=== PATIENT | female | born 1955 | race Caucasian/White ===

== ENCOUNTER 2017-05-20 01:41 | Emergency (ER) | payer OTHER ==
[~2017-05-20] VITALS: Ht 160 cm; Wt 102.1 kg
[2017-05-20 01:45] VITALS: BP 149/72
--- NOTE | 2017-05-20 01:55 | NUR ---
61/F CAME IN W C/O " I HAD LEFT KNEE REPLACEMENT ON 04/30/17 AND YESTERDAY I FELT SOMETHING POP, LIKE SOMETHING FELL IN MY KNEE" . DENIES ANY PAIN AT THIS TIME, +PMSC TO LLE WITH FULL ROM. SURGICAL SITE NOTED WITH STERSTRIPS, NO S/S OF INFECTION NOTED. PMH: DM, HTN
--- NOTE | 2017-05-20 02:25 | NUR ---
XRAY AT BEDSIDE
[2017-05-20 04:04] VITALS: BP 128/76
== END 2017-05-20 04:00 | disposition home or self-care (01) ==
LOC: MED 01:41
DX: G89.18 Other acute postprocedural pain (principal); I10 Essential (primary) hypertension; Z96.652 Presence of left artificial knee joint
CPT/HCPCS: 73562; 73630; 99284; Q0092

== ENCOUNTER 2017-06-21 21:07 | Inpatient (IN) | payer OTHER ==
[~2017-06-21] VITALS: Ht 160 cm; Wt 99.8 kg
[2017-06-21] MEDS: NACL 0.9% 1,000 ML IV SCH (00:29)
[2017-06-21 21:15] VITALS: BP 200/93
--- NOTE | 2017-06-21 21:19 | NUR ---
PT W/C ASSISTED TO ER BED 3
[2017-06-21] MEDS ORDERED: NACL 0.9% 1,000 ML IV ONE (21:30)
[2017-06-21] MEDS ORDERED: ONDANSETRON 4 MG/2 ML VIAL IVP ONE (21:30)
--- NOTE | 2017-06-21 21:30 | NUR ---
Pt vomiting. Skin warm but moist. Family x 1 at bedside.
--- NOTE | 2017-06-21 21:37 | NUR ---
X-Ray at bedside.
--- NOTE | 2017-06-21 22:09 | NUR ---
Ultrasound at bedside.
[2017-06-21] MEDS ORDERED: PROCHLORPERAZINE 10 MG/2 ML VIAL IVP ONE (22:10)
[2017-06-21 22:17] LABS: BASOPHILS % (AUTO) 0.4 % (0.0-2.0); EOSINOPHILS # (AUTO) 0.3 K/uL (0-0.4); EOSINOPHILS % (AUTO) 3.9 % (0.0-4.0); HEMATOCRIT 36.2 % (36-48); HEMOGLOBIN 11.8 g/dL (12.0-16.0); LYMPHOCYTES # (AUTO) 2.3 K/uL (2.5-16.5); LYMPHOCYTES % (AUTO) 31.5 % (20.5-51.1); MEAN CORPUSCULAR HEMOGLOBIN 27 pg (27-31); MEAN CORPUSCULAR HGB CONC 33 g/dL (33-37); MEAN CORPUSCULAR VOLUME 81.9 fL (80-94); MONOCYTES # (AUTO) 0.7 K/uL (0.8-1.0); NEUTROPHILS % (AUTO) 54.2 % (42.2-75.2); PLATELET COUNT (AUTO) 330 K/uL (140-450); RED BLOOD CELL COUNT(AUTO) 4.43 MIL/uL (4.20-5.40); RED CELL DISTRIBUTION WIDTH 14.1 % (11.6-13.7); WHITE BLOOD COUNT (AUTO) 7.3 K/uL (4.8-10.8)
[2017-06-21 22:21] LABS: ANION GAP 16.6 (8-16); CARBON DIOXIDE 25.9 mmol/L (21-32); CREATININE 1.1 mg/dL (0.6-1.3); POTASSIUM 3.5 mmol/L (3.5-5.1)
[2017-06-21 22:23] LABS: PROTHROMBIN TIME 12.1 secs (10.8-13.4)
--- NOTE | 2017-06-21 22:25 | NUR ---
States nausea subsiding.
[2017-06-21 22:27] LABS: ALBUMIN 3.6 g/dL (3.4-5.0); TOTAL BILIRUBIN 0.3 mg/dL (0.0-1.0)
[2017-06-21] MEDS ORDERED: MORPHINE SULFATE 4 MG/ML SYR IVP ONE (22:40)
--- NOTE | 2017-06-21 22:40 | NUR ---
Pt violently vomiting again. Dr Srinivasan aware.
[2017-06-21] MEDS ORDERED: KETOROLAC 30 MG/ML VIAL IVP ONE (22:45)
--- NOTE | 2017-06-21 22:48 | NUR ---
Kiki james in [facility] - 06/21/[address] at [address] Srinivasan evaluating patient.
[2017-06-21] MEDS ORDERED: ONDANSETRON 4 MG/2 ML VIAL IVP PRN (23:25)
[2017-06-21] MEDS ORDERED: HYDROcodone/APAP 7.5/325 MG 1 TAB PO PRN (23:25)
[2017-06-21] MEDS ORDERED: ACETAMINOPHEN 325 MG TAB PO PRN (23:25)
--- NOTE | 2017-06-21 23:26 | NUR ---
Pt states nausea resolved.
[2017-06-21 23:50] VITALS: BP 110/44
--- NOTE | 2017-06-21 23:50 | NUR ---
Patient will be admitted to care of Dr Mendieta. Admited to Tele. Will go to room 120A. Belongings list completed. Report to LESTER Vang.
--- NOTE | 2017-06-21 23:50 | NUR ---
RECEIVED PT FROM ER NURSE KEITH PT AWAKE, ALERT AND ORIENTED X4, NO RESPIRATORY DISTRESS OR C/O PAIN AT THIS TIME.ORIENRTED TO SURRPOUNDINGS, CALL LIGHT WITHIN REACH. INSTRUCTED TO CALL IF NEEDED ASSISTANCE. IV PATENT TO L AC #20. NO C/O P[AIN OR VOMITING .
[2017-06-21 23:57] LABS: APPEARANCE,URINE CLEAR (CLEAR); BILIRUBIN,URINE NEGATIVE (NEGATIVE); BLOOD, URINE 1+ (NEGATIVE); COLOR,URINE YELLOW (YELLOW); LEUKOCYTE ESTERASE ,URINE TRACE (NEGATIVE); NITRITE, URINE NEGATIVE (NEGATIVE); PH,URINE 6.5 (5.0-9.0); UGLUCOSE TRACE (NEGATIVE)
[2017-06-22 00:03] LABS: CHOL/HDL RATIO 4.2 (1-4.5); FREE T4 (FREE THYROXINE) 1.2 ng/dL (0.76-1.46); MAGNESIUM 2.2 mg/dL (1.8-2.4); THYROID STIMULATING HORMONE 3.07 uIU/mL (0.34-3.74)
[2017-06-22 00:03] LABS: BARBITURATE, URINE NEG. ng/ml (NEG <=200); BENZODIAZEPINE, URINE NEG. ng/mL (NEG <=200); CANNABINOID, URINE NEG. ng/mL (NEG <=50); COCAINE, URINE NEG. ng/mL (NEG <=300); OPIATE, URINE NEG. ng/mL (NEG <=2000); PHENCYCLIDINE SCREEN,URINE NEG. ng/mL (NEG <=25)
[2017-06-22 00:27] LABS: RBC,URINE 3-10 (FEW) /HPF (0-5)
[2017-06-22] MEDS: methylPREDNISolone SS 40 MG/ML VIAL IVP SCH ×3 (00:47→20:37)
--- NOTE | 2017-06-22 00:47 | NUR ---
SOLUMEDROL 40MG IV GIVEN ORDERED,EDUCATION GIVEN TO DAUGHTER SINCE PT IS SOUND ASLEEP.
[2017-06-22] MEDS ORDERED: DEXTROSE 50% 50 ML SYR IVP PRN (01:00)
[2017-06-22] MEDS ORDERED: LEVOFLOXACIN 250 MG/D5 PREMIX 50 ML IV SCH ×2 (02:00→22:00)
--- NOTE | 2017-06-22 02:30 | NUR ---
LEVAQUIN IV GIVEN PT EDUCATED FOR REACTION.
[2017-06-22 03:57] VITALS: BP 108/40
--- NOTE | 2017-06-22 04:00 | NUR ---
ASSISTED TO BSC VOIDED WITHOUT DIFFICULTY.
[2017-06-22] MEDS: INSULIN LISPRO SLIDING SCALE 100 UNITS/ML VIAL SUBQ PRN ×3 (06:16→16:50)
[2017-06-22] MEDS: BLOOD GLUCOSE MONITORING 1 DEV DEV FS SCH ×4 (06:16→21:10)
--- NOTE | 2017-06-22 06:30 | NUR ---
PT SLEEPING WHEN CHECK, NO C/O NAUSEA OR VOMITING, NO SIGN OF RESPIRATORY DISTRESS.
--- NOTE | 2017-06-22 07:30 | NUR ---
REPORT GIVEN TO HERVE FOR CONTINUITY OF CARE.
--- NOTE | 2017-06-22 07:30 | NUR ---
RECEIVED REPORT ABOUT THE PT FROM THE BARLEY STEEPER CHARGE NURSEBriana RIVERA. PT IS ASLEEP ON THE BED. NO SIGNS OF DISTRESS NOTED. CALL LIGHT WITHIN REACH. TWO SIDE RAILS ARE UP, AND HAS AN IV LINE ON THE LEFT HAND, INTACT. WILL CONTINUE TO MONITOR.
[2017-06-22 07:51] LABS: BASOPHILS % (AUTO) 0.4 % (0.0-2.0); HEMATOCRIT 37.6 % (36-48); HEMOGLOBIN 12.4 g/dL (12.0-16.0); LYMPHOCYTES # (AUTO) 0.5 K/uL (2.5-16.5); LYMPHOCYTES % (AUTO) 8.6 % (20.5-51.1); MEAN CORPUSCULAR HEMOGLOBIN 27 pg (27-31); MEAN CORPUSCULAR HGB CONC 33 g/dL (33-37); MONOCYTES # (AUTO) 0.1 K/uL (0.8-1.0); NEUTROPHILS # (AUTO) 5.5 K/uL (1.8-7.7); PLATELET COUNT (AUTO) 311 K/uL (140-450); RED BLOOD CELL COUNT(AUTO) 4.53 MIL/uL (4.20-5.40); RED CELL DISTRIBUTION WIDTH 13.9 % (11.6-13.7); WHITE BLOOD COUNT (AUTO) 6.1 K/uL (4.8-10.8)
[2017-06-22 07:55] LABS: MAGNESIUM 2.3 mg/dL (1.8-2.4); PHOSPHORUS 3.6 mg/dL (2.5-4.9)
[2017-06-22 07:57] LABS: ANION GAP 14.9 (8-16); CARBON DIOXIDE 26.5 mmol/L (21-32); CREATININE 0.9 mg/dL (0.6-1.3); POTASSIUM 4.4 mmol/L (3.5-5.1)
[2017-06-22 08:00] VITALS: BP 148/80
--- NOTE | 2017-06-22 08:27 | NUR ---
PATIENT HAS BEEN SCREENED AND CATEGORIZED HIGH NUTRITION RISK. PATIENT WILL BE SEEN WITHIN 1-2 DAYS OF ADMISSION. 06/22/17-06/23/[address]
[2017-06-22] MEDS: ATORVASTATIN 20 MG TAB PO SCH (09:21)
[2017-06-22] MEDS: DOCUSATE SODIUM 100 MG GELCAP PO SCH ×2 (09:21→20:37)
[2017-06-22] MEDS: ECOTRIN 81 MG TABEC PO SCH (09:21)
[2017-06-22] MEDS: LACTOBACILLUS RHAMNOSUS GG 1 EACH CAP PO SCH (09:21)
[2017-06-22] MEDS: amLODIPine 5 MG TAB PO SCH (09:21)
[2017-06-22] MEDS: PANTOPRAZOLE 40 MG TABEC PO SCH (09:22)
--- NOTE | 2017-06-22 11:30 | NUR ---
PT IS SEATED ON THE BED WITH DAUGHTER AT THE BEDSIDE. VITAL SIGNS TAKEN AND BLOOD GLUCOSE CHECK DONE RESULT REVEALED 154. WILL MEDICATE. CALL LIGHT WITHIN REACH. WILL CONTINUE TO MONITOR.
[2017-06-22 12:00] VITALS: BP 155/81
--- NOTE | 2017-06-22 12:30 | NUR ---
PT IS SEATED ON THE BED WITH DAUGHTER ON THE BEDSIDE, HUMALOG 2 UNITS GIVEN ON LEFT UPPER ARM. NO SIGNS OF DISTRESS NOTED. CALL LIGHT WITHHIN REACH. WILL MONITOR.
--- NOTE | 2017-06-22 14:03 | NUR ---
RD INITIAL ASSESSMENT COMPLETED PLEASE REFER TO NUTRITION ASSESSMENT UNDER CARE ACTIVITY FOR ESTIMATED NUTRITIONAL NEEDS. RD RECOMMENDATIONS: 1.CONTINUE CCHO 60 GM DIET TOLERATED. 2. RECOMMEND ENCOURAGING INCREASED PO INTAKE FOR ADEQUATE NUTRITION. -NOTE PT CONSUMED ~50% OF BREAKFAST THIS MORNING. 3. RD WILL F/U 3-5 DAYS; MODERATE RISK. AIDA CANALES, RD
[2017-06-22 16:00] VITALS: BP 147/64
--- NOTE | 2017-06-22 16:45 | NUR ---
PT IS AWAKE LYING ON THE BED. VITAL SIGNS TAKEN AND BLOOD GLUCOSE CHECK DONE, RESULT IS 158, GAVE 2 UNITS OF HUMALOG. NO SIGNS OF DISTRESS NOTED. CALL LIGHT WITHIN REACH. WILL CONTINUE TO MONITOR.
--- NOTE | 2017-06-22 18:30 | NUR ---
PT IS LYING ON THE BED ASLEEP, NO SIGNS OF DISTRESS NOTED AT THIS TIME. CALL LIGHT WITHIN REACH. WILL CONTINUE TO MONITOR.
--- NOTE | 2017-06-22 19:25 | NUR ---
ENDORSED PT TO GROUP ART SUPERVISOR NURSES, MANAS, FOR CONTINUITY OF CARE. PT IS AWAKE LYING ON THE BED. PT IS STABLE AT THIS TIME. CALL LIGHT WITHIN REACH. WILL CONTINUE TO MONITOR.
--- NOTE | 2017-06-22 19:30 | NUR ---
RECEIVED REPORT FROM THE DAYSHIFT NURSE AT BEDSIDE. FOR CONTINUITY OF CARE. PT IS AWAKE AO X4. NO S/S OF DISTRESS. PT IS ON RA. NO SOB. NO COMPLAINTS OF PAIN AT THIS TIME. IV LINE NOTED LAC 20G. PATENT AND INTACT. BED LOWERED WITH CALL LIGHT WITHIN REACH WILL CONTINUE TO MONITOR.
[2017-06-22 20:00] VITALS: BP 174/77
[2017-06-22] MEDS ORDERED: KETOROLAC 30 MG/ML VIAL IM PRN (20:40)
[2017-06-22] MEDS: NACL 0.9% 1,000 ML IV SCH (21:00)
--- NOTE | 2017-06-22 21:30 | NUR ---
PT IN STABLE CONDITION. PT COMPLAINING OF PAIN IN IV SITE. ASSESSED HER IV AND RE-TAPED IT. PT REQUESTED ICE BAG AND CRACKERS. WILL CONTINUE TO MONITOR.
--- NOTE | 2017-06-22 23:21 | NUR ---
DC: IV LINE D/T UNABLE TO FLUSH. NEW IV LEFT FOREARM 22G. PATENT INTACT AND FLUSHING.
[2017-06-23] VITALS: BP 136/73
--- NOTE | 2017-06-23 00:50 | NUR ---
ASSESSED TO SEE HOW PATIENT WAS DOING. PT IS SLEEPING. NO SOB. NO S/S OF DISTRESS. WILL CONTINUE TO MONITOR.
--- NOTE | 2017-06-23 03:30 | NUR ---
PT IS ASLEEP ON THE BED. NO SIGNS OF DISTRESS NOTED. CALL LIGHT WITHIN REACH. WILL MONITOR.
[2017-06-23 04:00] VITALS: BP 132/65
--- NOTE | 2017-06-23 06:00 | NUR ---
PT WAS SLEEPING ASSESSED. NO S/S OF DISTRESS WILL CONTINUE TO MONITOR.
[2017-06-23] MEDS: BLOOD GLUCOSE MONITORING 1 DEV DEV FS SCH (06:30)
[2017-06-23] MEDS: INSULIN LISPRO SLIDING SCALE 100 UNITS/ML VIAL SUBQ PRN (06:31)
[2017-06-23 06:48] LABS: BASOPHILS % (AUTO) 0.1 % (0.0-2.0); HEMATOCRIT 34.4 % (36-48); HEMOGLOBIN 11.4 g/dL (12.0-16.0); LYMPHOCYTES # (AUTO) 0.8 K/uL (2.5-16.5); LYMPHOCYTES % (AUTO) 7.7 % (20.5-51.1); MEAN CORPUSCULAR HEMOGLOBIN 27 pg (27-31); MEAN CORPUSCULAR HGB CONC 33 g/dL (33-37); MEAN CORPUSCULAR VOLUME 81.8 fL (80-94); MONOCYTES # (AUTO) 0.4 K/uL (0.8-1.0); MONOCYTES % (AUTO) 3.5 % (1.7-9.3); NEUTROPHILS # (AUTO) 9.2 K/uL (1.8-7.7); NEUTROPHILS % (AUTO) 88.7 % (42.2-75.2); PLATELET COUNT (AUTO) 316 K/uL (140-450); RED BLOOD CELL COUNT(AUTO) 4.21 MIL/uL (4.20-5.40); WHITE BLOOD COUNT (AUTO) 10.4 K/uL (4.8-10.8)
[2017-06-23 07:10] LABS: ANION GAP 13.1 (8-16); CARBON DIOXIDE 27.2 mmol/L (21-32); POTASSIUM 4.3 mmol/L (3.5-5.1)
--- NOTE | 2017-06-23 07:19 | NUR ---
GAVE REPORT TO DAY SHIFT NURSE AT BEDSIDE. FOR CONTINUITY OF CARE.
--- NOTE | 2017-06-23 07:20 | NUR ---
RECEIVED REPORT FROM RN CARDIAC CATH. PT ALERT AND ORIENTED X3, V/S STABLE. NO DISTRESS,NO C/C OF PAIN.LYING IN BED.WILL CONTINUE MONITORING.
[2017-06-23 08:00] VITALS: BP 133/62
[2017-06-23] MEDS: ECOTRIN 81 MG TABEC PO SCH (09:00)
--- NOTE | 2017-06-23 10:00 | NUR ---
PATIENT ASK TO DISCHARGE TODAY.DENIED PAIN AND DISCOMFORT.NO NAUSEA AND VOMITING.CALL LIGHT WITHIN REACH.AWARE PATIENT WANTS TO DISCHARGE AND WAITING FOR ORDER.WILL CONTINUE TO MONITORING.
[2017-06-23] MEDS: methylPREDNISolone SS 40 MG/ML VIAL IVP SCH (10:02)
[2017-06-23] MEDS: DOCUSATE SODIUM 100 MG GELCAP PO SCH (10:03)
[2017-06-23] MEDS: LACTOBACILLUS RHAMNOSUS GG 1 EACH CAP PO SCH (10:04)
[2017-06-23] MEDS: PANTOPRAZOLE 40 MG TABEC PO SCH (10:13)
[2017-06-23] MEDS: ATORVASTATIN 20 MG TAB PO SCH (10:18)
[2017-06-23] MEDS: amLODIPine 5 MG TAB PO SCH (10:19)
[2017-06-23] MEDS ORDERED: OMEP20TC10 PO (11:29)
[2017-06-23] MEDS ORDERED: AMLO5TAB PO (11:29)
[2017-06-23] MEDS ORDERED: LEVO750T2 PO (11:36)
[2017-06-23] MEDS ORDERED: ATOR20TA40 PO (11:36)
[2017-06-23] MEDS ORDERED: LACT10CA PO (11:36)
[2017-06-23] MEDS ORDERED: METH4TAB3 PO (11:36)
--- NOTE | 2017-06-23 13:00 | NUR ---
RECEIVED ORDER TO DISCHARGE TO HOME.INSTRUCTED DC MEDS,FALL PRECAUTION,STANDARD PRECAUTION.PATIENT VERBALIZED UNDERSTANDING.NO DISTRESS.ALERT AND ORIENTEDX3,STABLE V/S AND BS. ASSISTED TO LOBBY BY WHEEL CHAIR TO SOLE LAYER HAND BY DAUGHTER.
--- NOTE | 2017-06-23 14:54 | NUR ---
CM NOTE INITIAL REVIEW FAXED TO [employer] / FAX# [phone]
--- NOTE | 2017-06-25 13:14 | NUR ---
LATE ENTRY FOR 06/24/17 RECEIVED VM FROM [facility] STAT[facility] PT REFERENCE NUMBER IS [id number]. CALL BACK NUMBER IS [phone] AND FAX [phone]
== END 2017-06-23 14:00 | disposition home or self-care (01) | DRG 197 ==
LOC: MED 21:07 → MTU 23:23
PROVIDERS: ADMIT Student in an Organized Health Care Education/Training Program; ATTEND Student in an Organized Health Care Education/Training Program
DX: D86.9 Sarcoidosis, unspecified (principal); D68.59 Other primary thrombophilia; E11.51 Type 2 diabetes mellitus with diabetic peripheral angiopathy without gangrene; E11.65 Type 2 diabetes mellitus with hyperglycemia; E66.01 Morbid (severe) obesity due to excess calories; N39.0 Urinary tract infection, site not specified; I16.0 Hypertensive urgency; D86.85 Sarcoid myocarditis; E78.5 Hyperlipidemia, unspecified; Z68.39 Body mass index [BMI] 39.0-39.9, adult; I10 Essential (primary) hypertension; Z96.652 Presence of left artificial knee joint; K21.9 Gastro-esophageal reflux disease without esophagitis; Z88.5 Allergy status to narcotic agent; D64.9 Anemia, unspecified; Z60.2 Problems related to living alone; Z80.3 Family history of malignant neoplasm of breast
CPT/HCPCS: 36415; 71045; 80048; 80053; 80305; 81001; 82150; 82164; 82330; 82948; 83036; 83605; 83690; 83735; 83880; 84100; 84439; 84443; 84484; 85025; 85610; 85651; 85730; 86140; 87040; 87081; 87086; 93005; 93925; 93971; 96361; 96374; 96375; 99285; J0780; J1644; J1815; J1885; J1956; J2405; J2920; J7030; Q0092

== ENCOUNTER 2021-05-16 14:57 | Emergency (ER) | payer OTHER ==
[~2021-05-16] VITALS: Ht 160 cm; Wt 108.9 kg
[~2021-05-16 14:57] MED LIST: AMLO5TAB PO; ATOR20TA40 PO; LACT10CA PO; LEVO750T2 PO; METH4TAB3 PO; OMEP20TC10 PO
[2021-05-16 15:10] VITALS: BP 137/70
--- NOTE | 2021-05-16 15:10 | NUR ---
65 y/o Female BIB self for increased left left swelling x 2 weeks. Is concerned that she may have a DVT due to the pain. States she has increased weakness on left leg and has an impaired gait. Negative for stroke symptoms at this time. Pmhx: HTN DM Asthma GERD Allergies: Codeine
--- NOTE | 2021-05-16 15:40 | NUR ---
US AT BEDSIDE TO PERFORM PROCEDURE
[2021-05-16 17:28] VITALS: BP 137/70
--- NOTE | 2021-05-16 17:28 | NUR ---
Patient discharged with v/s stable. Written and verbal after care instructions given and explained. Patient verbalized understanding. Ambulatory with steady gait. All questions addressed prior to discharge. Advised to follow up with PMD. copy of us report given to pt
== END 2021-05-16 17:28 | disposition home or self-care (01) ==
LOC: MED 14:57
DX: M21.252 Flexion deformity, left hip (principal); M79.605 Pain in left leg
CPT/HCPCS: 93971; 99284; Q0092